=== PATIENT | female | born 1975 | race Caucasian/White ===

== ENCOUNTER 2019-04-28 15:45 | Emergency (ER) | payer OTHER ==
[~2019-04-28] VITALS: Ht 175.3 cm; Wt 105.7 kg
[2019-04-28 15:57] VITALS: Ht 175.3 cm; Wt 105.7 kg
[2019-04-28 18:13] VITALS: BP 128/68
== END 2019-04-28 18:12 | disposition home or self-care (01) ==
LOC: ED 15:45
DX: K42.9 Umbilical hernia without obstruction or gangrene (principal); Z90.89 Acquired absence of other organs; Z98.890 Other specified postprocedural states

== ENCOUNTER 2020-07-27 14:09 | Emergency (ER) | payer OTHER ==
[~2020-07-27] VITALS: Ht 170.2 cm; Wt 89.8 kg
[2020-07-27 14:39] VITALS: Ht 170.2 cm; Wt 89.8 kg
[2020-07-27 17:49] VITALS: BP 101/75
== END 2020-07-27 17:49 | disposition home or self-care (01) ==
LOC: ED 14:09
DX: M79.2 Neuralgia and neuritis, unspecified (principal); Z98.890 Other specified postprocedural states
CPT/HCPCS: J2930; J7060